=== PATIENT | male | born 2000 | race Caucasian/White ===

== ENCOUNTER 2021-04-13 03:34 | Emergency (ER) | payer BC ==
[2021-04-13] MEDS ORDERED: Ketorolac Tromethamine 30 MG/ML VIAL ONE (04:04)
[2021-04-13] MEDS ORDERED: Acetaminophen 500 MG TAB ONE (04:04)
[2021-04-13 14:00] LABS: SARS-CoV-2 PCR by NAA Not Detected (NotDetected)
== END 2021-04-13 05:26 | disposition home or self-care (01) ==
LOC: CSHERS 03:34
DX: B34.9 Viral infection, unspecified (principal); F17.290 Nicotine dependence, other tobacco product, uncomplicated; Z20.822 Contact with and (suspected) exposure to COVID-19
CPT/HCPCS: 71045; 87804; 96372; J1885; U0003; U0005